=== PATIENT | male | born 1985 | race American Indian/Alaskan Native ===

== ENCOUNTER 2018-07-04 10:41 | Day surgery (SDC) | payer BC ==
[2018-07-04] MEDS ORDERED: LACTATED RINGERS 1,000 ML ONE (11:34)
[2018-07-04] MEDS ORDERED: DIPRIVAN 10 MG/ML IV ONE (11:41)
[2018-07-04] MEDS ORDERED: DILAUDID ONE (11:41)
[2018-07-04] MEDS ORDERED: XYLOCAINE MPF 2% ONE (11:42)
[2018-07-04] MEDS ORDERED: PEPCID IV ONE (11:47)
[2018-07-04] MEDS ORDERED: VERSED ONE (11:47)
[2018-07-04] MEDS ORDERED: ANCEF/STERILE WATER 2 GM/20 ML IV NR (12:00)
[2018-07-04] MEDS ORDERED: LACTATED RINGERS 1,000 ML IV SCH (12:00)
[2018-07-04] MEDS ORDERED: DILAUDID IV PRN (12:06)
--- NOTE | 2018-07-04 12:06 | Anesthesia Consultation ---
Anesthesia Consult and Med Hx Date of service: 07/04/18 - Airway Anesthetic Teeth Evaluation: Good ROM Head & Neck: Adequate Mental/Hyoid Distance: Adequate Mallampati Class: Class II Intubation Access Assessment: Probably Good - Pulmonary Exam CTA: Yes - Cardiac Exam Cardiac Exam: RRR - Pre-Operative Health Status ASA Pre-Surgery Classification: ASA1 Proposed Anesthetic Plan: General - Pulmonary Hx Smoking: No Hx Asthma: Yes (mild childhood asthma; no hx inhaler use) Hx Respiratory Symptoms: No Hx Sleep Apnea: No ([facility] PRE SCREEN LOW RISK) - Cardiovascular System Hx Hypertension: No Hx Heart Attack/AMI: No Hx Percutaneous Transluminal Coronary Angioplasty (PTCA): No Hx Cardia Arrhythmia: No - Central Nervous System Hx Seizures: No CVA: No - Gastrointestinal Hx Gastroesophageal Reflux Disease: No - Endocrine Hx Renal Disease: No Hx Liver Disease: No Hx Insulin Dependent Diabetes: No Hx Non-Insulin Dependent Diabetes: No Hx Thyroid Disease: No - Other Systems Hx Obesity: No - Additional Comments Anesthesia Medical History Comments: No prior GA. No FHx anesthetic complications.
--- NOTE | 2018-07-04 12:06 | Anesthesia Day of Surgery ---
Anesthesia Day of Surgery - Day of Surgery Patient Examined: Yes Patient H&P Reviewed: Yes Patient is NPO: Yes
[2018-07-04] MEDS ORDERED: ZOFRAN ONE (13:28)
[2018-07-04] MEDS ORDERED: TORADOL ONE (13:29)
[2018-07-04] MEDS ORDERED: NACL 0.9% IR ONE (13:41)
--- NOTE | 2018-07-04 13:41 | Post Operative Note ---
Date of procedure: 07/04/18 Pre-op diagnosis: hydroceles sterilization Post-op diagnosis: same Findings: tiny vasa Procedure: bilat hydrocelectomy vasectomy Anesthesia: GETA Surgeon: ALEXEY ACOSTA Estimated blood loss: minimal Pathology: list (vasa) Specimen disposition: to lab Condition: stable Disposition: PACU
--- NOTE | 2018-07-04 13:42 | Discharge Summary ---
Short Stay Discharge Plan Activity: other (no lifting ) Weight Bearing Status: Full Weight Bearing Diet: regular Wound: open to air, change dressing Special Instructions: other (ice p[acks ) Durable Medical Equipment Needed Upon Discharge: other (ice and drain ) Follow up with: ATUL HENDRIX MD [Primary Care Provider] - 7 Days ALEXEY ACOSTA MD [Staff Physician] - 07/05/18
--- NOTE | 2018-07-04 14:04 | Operative Report ---
PREOPERATIVE DIAGNOSES: Large right hydrocele, small left hydrocele, small vasa. POSTOPERATIVE DIAGNOSES: Large right hydrocele, small left hydrocele, small vasa. PROCEDURES: Right scrotal exploration, right hydrocelectomy, bilateral vasectomy. SURGEON: Kai Mullins MD ANESTHESIA: General. FINDINGS: This is a gentleman who has children. His is and wants to have vasectomy. All options were discussed. He also has a prominent right hydrocele. DESCRIPTION OF PROCEDURE: The patient was brought up to the operating room and placed on the operating table. Following induction of anesthesia, he was placed in the supine position and prepped and draped in usual sterile fashion. An oblique incision was made over the right hemiscrotum and carried down to the tunica vaginalis. Hemostasis was excellent. The vaginalis was opened. Approximately 75 mL of clear yellow fluid was obtained. The tunica was imbricated and cauterized. Even with his testes exposed, the vasa was so tiny. We were able to palpate it and dissected down to it. We doubly tied it and cauterized and divided. Specimen sent to be sure we had the vasa. It was so small and according to the pathologist, he had to use a microscope or magnification. On the left side, we obtained through the incision, but once again it was so small, so we opened up the tunica just to expose it and there was a small left hydrocele as well. It looked to be the vas and felt like a vas, but again, it was so tiny. We sent it to pathology. The patient tolerated the procedure well. Tunica was closed with 3-0 chromic, skin with 2-0 chromic with minimal blood loss and brought to recovery in stable condition. JOB# [id number] RUDY/BRANDY
--- NOTE | 2018-07-04 15:36 | Post Anesthesia Evaluation ---
- Post Anesthesia Evaluation Patient Participated: Yes Airway Patent: Yes Stable Respiratory Function: Yes Nausea/Vomiting: No Pain Manageable: Yes Adequeate Hydration: Yes Anesthesia Complications: Yes Block Receding Appropriately: No
[2018-07-04 18:47] VITALS: BP 124/74
== END 2018-07-04 18:25 | disposition home or self-care (01) ==
LOC: OR 10:41
PROVIDERS: ATTEND Urology
DX: N43.3 Hydrocele, unspecified (principal); N50.89 Other specified disorders of the male genital organs; J45.909 Unspecified asthma, uncomplicated; Z98.890 Other specified postprocedural states
CPT/HCPCS: 55040; 55250; 88302; 88331; J0690; J1170; J1885; J2250; J2405; J2704; J7120